=== PATIENT | female | born 1950 | race Caucasian/White ===

== ENCOUNTER 2020-04-10 10:42 | Emergency (ER) | payer MEDICARE | END 2020-04-10 14:11 | disposition home or self-care (01) | LOC: ER 10:42 | DX: I10 Essential (primary) hypertension (principal); G45.9 Transient cerebral ischemic attack, unspecified; E03.9 Hypothyroidism, unspecified; Z79.82 Long term (current) use of aspirin; Z79.899 Other long term (current) drug therapy; Z88.0 Allergy status to penicillin ==

== ENCOUNTER 2020-12-29 08:21 | Day surgery (SDC) | payer MEDICARE ==
[~2020-12-29] VITALS: Ht 172.7 cm; Wt 78.1 kg
[~2020-12-29 08:21] MED LIST: ALEN70; ALLERCLEAR10 MG PO; ASPI325EC PO; ASPI81CH PO; B Complex #11 EACH PO; CALCAVITD PO; CEPH500 PO; CYAN500 PO; HYDACE5 PO; LEVSOD112; LEVSOD150 PO; Multiple Vitam1 EAC1 PO; PRAV20 PO; Pravachol40 MG PO; Prinivil10 MG PO; TURMERIC500 M2 PO; VITAMIN D50000 UNIT PO
[2020-12-29] MEDS ORDERED: CLOP75 (08:41)
--- NOTE | 2020-12-29 08:53 | NUR ---
12/29/20 0853 Samanta Bell 1 TRY RIGHT HAND VALVE
== END 2020-12-29 10:36 | disposition home or self-care (01) ==
LOC: ORSCSDS 08:21
PROVIDERS: Internal Medicine Gastroenterology
PROC: 0DBM8ZX Excision of Descending Colon, Via Natural or Artificial Opening Endoscopic, Diagnostic (ICD-10-PCS; principal; 2020-12-29 09:45)
DX: Z12.11 Encounter for screening for malignant neoplasm of colon (principal); Z86.010 Personal history of colon polyps; K63.5 Polyp of colon; K64.8 Other hemorrhoids; K57.30 Diverticulosis of large intestine without perforation or abscess without bleeding; Z79.899 Other long term (current) drug therapy; Z79.01 Long term (current) use of anticoagulants
CPT/HCPCS: 88305; J2704; J7120

== ENCOUNTER → 2023-03-22 | Outpatient (CLI) | payer MEDICARE ==
[~2023-03-22] MED LIST changes: +CLOP75
== END ==
LOC: LAB SHORT 11:45 → PLD 11:45 → LAB 11:45
DX: D48.5 Neoplasm of uncertain behavior of skin (principal)
CPT/HCPCS: 88305

== ENCOUNTER 2024-05-31 08:33 | Day surgery (SDC) | payer OTHER ==
[~2024-05-31] VITALS: Ht 172.7 cm; Wt 86.0 kg
[~2024-05-31 08:33] MED LIST changes: +Balanced Salt Epinephrine Irrigation Solution 500 mL IR SCH; +Lidocaine HCl/Pf 1% 5 ML VIAL XX SCH; +Moxifloxacin HCL 0.5 MG/0.1 ML 0.4MLSYR RIGHTEYE SCH; +PHENYLEPHRINE\\TROPICAMIDE\\TETRACAINE OPHTHALMIC DILATING SOLN RIGHTEYE PRN; +Povidone-Iodine 450 DROP/30 ML Solution RIGHTEYE SCH; +Triamcinolone Inj Susp 40 MG / ML 1ML Vial INJ SCH; +Triamcinolone Inj Susp 40 MG / ML 1ML Vial ONE
[2024-05-31] MEDS ORDERED: Midazolam HCl 1MG / ML 2ML Vial ONE (09:10)
[2024-05-31] MEDS ORDERED: Tetracaine HCl 0.5% Opth Soln 15 ml RIGHTEYE ONE (09:35)
[2024-05-31 10:03] VITALS: BP 122/71
== END 2024-05-31 10:13 | disposition home or self-care (01) ==
LOC: ORSCSDS 08:33
PROVIDERS: Ophthalmology
PROC: 08RJ3JZ Replacement of Right Lens with Synthetic Substitute, Percutaneous Approach (ICD-10-PCS; principal; 2024-05-31 10:00)
DX: H25.813 Combined forms of age-related cataract, bilateral (principal); H52.201 Unspecified astigmatism, right eye; H52.4 Presbyopia; I10 Essential (primary) hypertension; E03.9 Hypothyroidism, unspecified; Z79.899 Other long term (current) drug therapy; Z79.02 Long term (current) use of antithrombotics/antiplatelets
CPT/HCPCS: J2250; J3301; V2632

== ENCOUNTER 2024-06-14 07:29 | Day surgery (SDC) | payer OTHER ==
[~2024-06-14] VITALS: Ht 172.7 cm; Wt 86.5 kg
[~2024-06-14 07:29] MED LIST changes: +Lidocaine HCl/Pf 1% 5 ML VIAL ONE; +Moxifloxacin HCL 0.5 MG/0.1 ML 0.4MLSYR LEFTEYE SCH; -Moxifloxacin HCL 0.5 MG/0.1 ML 0.4MLSYR RIGHTEYE SCH; +PHENYLEPHRINE\\TROPICAMIDE\\TETRACAINE OPHTHALMIC DILATING SOLN LEFTEYE PRN; -PHENYLEPHRINE\\TROPICAMIDE\\TETRACAINE OPHTHALMIC DILATING SOLN RIGHTEYE PRN; +Povidone-Iodine 450 DROP/30 ML Solution LEFTEYE SCH; -Povidone-Iodine 450 DROP/30 ML Solution RIGHTEYE SCH
[2024-06-14] MEDS ORDERED: DIAZEPAM5 M2 PO (08:07)
[2024-06-14] MEDS ORDERED: Tetracaine HCl 0.5% Opth Soln 15 ml LEFTEYE ONE (08:53)
[2024-06-14 09:29] VITALS: BP 188/83
== END 2024-06-14 09:40 | disposition home or self-care (01) ==
LOC: ORSCSDS 07:29
PROVIDERS: Ophthalmology
PROC: 08RK3JZ Replacement of Left Lens with Synthetic Substitute, Percutaneous Approach (ICD-10-PCS; principal; 2024-06-14 09:00)
DX: H25.812 Combined forms of age-related cataract, left eye (principal); H52.4 Presbyopia; Z96.1 Presence of intraocular lens; I10 Essential (primary) hypertension; E07.9 Disorder of thyroid, unspecified; Z79.02 Long term (current) use of antithrombotics/antiplatelets; Z79.899 Other long term (current) drug therapy
CPT/HCPCS: J2003; J3301; V2632

== ENCOUNTER → 2024-07-18 | Outpatient (CLI) | payer OTHER ==
[~2024-07-18] MED LIST changes: -Balanced Salt Epinephrine Irrigation Solution 500 mL IR SCH; +DIAZEPAM5 M2 PO; -Lidocaine HCl/Pf 1% 5 ML VIAL ONE; -Lidocaine HCl/Pf 1% 5 ML VIAL XX SCH; -Moxifloxacin HCL 0.5 MG/0.1 ML 0.4MLSYR LEFTEYE SCH; -PHENYLEPHRINE\\TROPICAMIDE\\TETRACAINE OPHTHALMIC DILATING SOLN LEFTEYE PRN; -Povidone-Iodine 450 DROP/30 ML Solution LEFTEYE SCH; -Triamcinolone Inj Susp 40 MG / ML 1ML Vial INJ SCH; -Triamcinolone Inj Susp 40 MG / ML 1ML Vial ONE
== END ==
LOC: LAB SHORT 14:13 → LAB 14:13
DX: R30.0 Dysuria (principal)
CPT/HCPCS: 87077; 87086; 87186

== ENCOUNTER → 2024-09-16 | Outpatient (CLI) | payer OTHER | END | disposition home or self-care (01) | LOC: LAB SHORT 14:24 → LAB 14:24 | DX: N39.0 Urinary tract infection, site not specified (principal) | CPT/HCPCS: 87086 ==

== ENCOUNTER → 2024-11-01 | Outpatient (CLI) | payer OTHER | END | disposition home or self-care (01) | LOC: LAB SHORT 18:33 → LAB 18:33 | DX: N39.0 Urinary tract infection, site not specified (principal) | CPT/HCPCS: 87086 ==